=== PATIENT | female | born 1960 | race American Indian/Alaskan Native ===

== ENCOUNTER 2017-01-28 19:27 | Emergency (ER) | payer OTHER ==
[2017-01-28 20:46] LABS: Basophils % (Auto) 1.6 % (0.0-1.8); Eosinophils % (Auto) 0.5 % (0.0-4.3); Hematocrit 47.3 % (30.3-42.9); Hemoglobin 15.2 gm/dl (10.1-14.3); Mean Corpuscular HGB Conc 32 % (30-34); Mean Corpuscular Volume 78 fl (79-97); Platelet Count 217 K/mm3 (140-440); Red Blood Count 6.07 M/mm3 (3.65-5.03); Red Cell Distribution Width 15.7 % (13.2-15.2); White Blood Count 9.1 K/mm3 (4.5-11.0)
[2017-01-28 20:49] LABS: Anion Gap 23 mmol/L; BUN/Creatinine Ratio 20.76; Blood Urea Nitrogen 27 mg/dL (7-17); Calcium 9.9 mg/dL (8.4-10.2); Carbon Dioxide 26 mmol/L (22-30); Chloride 97.7 mmol/L (98-107); Glucose 110 mg/dL (65-100); Potassium 3.4 mmol/L (3.6-5.0); Sodium 143 mmol/L (137-145)
[2017-01-28 20:51] LABS: Mean Corpuscular Hemoglobin 25 pg (28-32)
[2017-01-29] MEDS ORDERED: CATAPRES ONE (03:23)
[2017-01-29] MEDS ORDERED: CATAPRES PO ONE (03:24)
--- NOTE | 2017-01-29 03:34 | Emergency Department Report ---
HPI - General Chief Complaint: High BP Time Seen by Provider: 01/29/17 03:17 - HPI HPI: Room 23 The patient is a 56-year-old female presenting with a chief complaint of hypertension. The patient states she's been under a lot of stress for the past 3-4 weeks. Patient states her sister took her blood pressure today (sisters in the health professional) and obtain a number of 183/90 at approximate 17:00 today. The patient states she had a possibly 5-6 seconds of tingling in her left arm earlier today but has since resolved. Patient currently denies any complaints and states she feels fine. Patient denies headache chest pain or numbness. Location: [see above] Duration: [see above] Quality: Hypertension Severity: 183/90 Modifying factors: [see above] Context: [see above] Mode of transportation: Unknown ED Past Medical Hx - Past Medical History Previous Medical History?: No Additional medical history: ANEMIA - Surgical History Past Surgical History?: Yes Additional Surgical History: FIBROIDS / LUMP ON BREAST / HYSTERECTOMY - Family History Family history: no significant - Social History Smoking Status: Never Smoker Substance Use Type: None - Medications Home Medications: Home Medications Medication Instructions Recorded Confirmed Last Taken Type amLODIPine [Norvasc] 5 mg PO DAILY #90 tab 01/29/17 Unknown Rx ED Review of Systems ROS: Stated complaint: HBP Other details as noted in HPI Comment: All other systems reviewed and negative Constitutional: denies: chills, fever Eyes: denies: eye pain, eye discharge, vision change ENT: denies: ear pain, throat pain Respiratory: denies: cough, shortness of breath, wheezing Cardiovascular: denies: chest pain, palpitations Endocrine: no symptoms reported Gastrointestinal: denies: abdominal pain, nausea, diarrhea Genitourinary: denies: urgency, dysuria, discharge Musculoskeletal: denies: back pain, joint swelling, arthralgia Skin: denies: rash, lesions Neurological: paresthesias. denies: headache Psychiatric: denies: anxiety, depression Hematological/Lymphatic: denies: easy bleeding, easy bruising Physical Exam - Physical Exam Vital Signs: Vital Signs 01/28/17 01/29/17 19:55 02:19 Temperature 98.7 F Pulse Rate 92 H 73 Respiratory 16 21 Rate Blood Pressure 149/99 Blood Pressure 203/84 [Left] O2 Sat by Pulse 96 99 Oximetry Physical Exam: GENERAL: The patient is well-developed well-nourished female lying on stretcher not appearing to be in acute distress. [] HEENT: Normocephalic. Atraumatic. Extraocular motions are intact. Patient has moist mucous membranes. NECK: Supple. No meningitic signs are noted. Trachea midline CHEST/LUNGS: Clear to auscultation. There is no respiratory distress noted. HEART/CARDIOVASCULAR: Regular. There is no tachycardia. There is no gallop rub or murmur. ABDOMEN: Abdomen is soft, nontender. Patient has normal bowel sounds. There is no abdominal distention. SKIN: There is no rash. There is no edema. There is no diaphoresis. NEURO: The patient is awake, alert, and oriented. The patient is cooperative. The patient has no focal neurologic deficits. The patient has normal speech. Cranial nerves II through XII grossly intact, no drift, down filler 5+/5 bilaterally MUSCULOSKELETAL: There is no evidence of acute injury. ED Course Vital Signs 01/28/17 01/29/17 19:55 02:19 Temperature 98.7 F Pulse Rate 92 H 73 Respiratory 16 21 Rate Blood Pressure 149/99 Blood Pressure 203/84 [Left] O2 Sat by Pulse 96 99 Oximetry - Reevaluation(s) Reevaluation #1: 01/29/17 04:46 Blood pressure 111/69 ED Medical Decision Making - Lab Data Result diagrams: 01/28/17 20:18 01/28/17 20:18 Laboratory Tests 01/28/17 01/28/17 01/28/17 20:18 20:18 23:23 WBC 9.1 RBC 6.07 H Hgb 15.2 H Hct 47.3 H MCV 78 L MCH 25 L MCHC 32 RDW 15.7 H Plt Count 217 Lymph % (Auto) 28.2 [place] % (Auto) 5.9 Eos % (Auto) 0.5 Baso % (Auto) 1.6 Lymph # 2.6 [place] # 0.5 Eos # 0.0 Baso # 0.1 Seg Neutrophils % 63.8 Seg Neutrophils # 5.8 Sodium 143 Potassium 3.4 L Chloride 97.7 L Carbon Dioxide 26 Anion Gap 23 BUN 27 H Creatinine 1.3 H Estimated GFR 51 BUN/Creatinine Ratio 20.76 Glucose 110 H Calcium 9.9 Troponin T < 0.010 < 0.010 01/29/17 02:03 WBC RBC Hgb Hct MCV MCH MCHC RDW Plt Count Lymph % (Auto) [place] % (Auto) Eos % (Auto) Baso % (Auto) Lymph # [place] # Eos # Baso # Seg Neutrophils % Seg Neutrophils # Sodium Potassium Chloride Carbon Dioxide Anion Gap BUN Creatinine Estimated GFR BUN/Creatinine Ratio Glucose Calcium Troponin T < 0.010 - EKG Data -: EKG Interpreted by Me EKG shows normal: sinus rhythm Rate: normal - EKG Data When compared to previous EKG there are: previous EKG unavailable Interpretation: nonspecific ST-T wave stephenie (T-wave inversion in lead 3 and aVF) - Radiology Data Radiology results: report reviewed (CT head), image reviewed (CT head) CT head (read by radiologist)-negative CT of the head. No acute intracranial process noted. - Differential Diagnosis hypertension, hypertensive urgency, TIA, ICH Critical care attestation.: If time is entered above; I have spent that time in minutes in the direct care of this critically ill patient, excluding procedure time. ED Disposition Clinical Impression: Hypertension Disposition: DC-01 TO HOME OR SELFCARE Is pt being admited?: No Does the pt Need Aspirin: No Condition: Stable Instructions: Hypertension (ED) Additional Instructions: Return to the emergency department immediately should you develop worsening symptoms, fever, inability to tolerate food or liquid or any other concerns. Prescriptions: amLODIPine [Norvasc] 5 mg PO DAILY #90 tab Referrals: PRIMARY CARE, [Primary Care Provider] - [facility] Time of Disposition: 04:46
--- NOTE | 2017-01-29 04:28 | Cat Scan Report ---
FINAL REPORT EXAM: CT HEAD/BRAIN WO CON HISTORY: left arm paresthesia TECHNIQUE: Standard unenhanced CT of the head at 5.0 millimeter axial increments PRIORS: None. FINDINGS: The ventricular system is normal in size and configuration. There is no evidence for parenchymal volume loss. There is no evidence for mass lesion, mass effect, midline shift, acute intracranial hemorrhage, or acute ischemia/ infarction. Visualized paranasal sinuses are clear. IMPRESSION: Negative CT of the head. No acute intracranial process noted.
[2017-01-29 04:57] VITALS: BP 142/94
== END 2017-01-29 04:59 | disposition home or self-care (01) ==
LOC: ED 19:27
DX: R03.0 Elevated blood-pressure reading, without diagnosis of hypertension (principal); D64.9 Anemia, unspecified
CPT/HCPCS: 36415; 70450; 80048; 84484; 85025; 93005; 93010; 99285